=== PATIENT | male | born 1970 | race Caucasian/White ===

== ENCOUNTER 2024-11-19 12:46 | Outpatient (CLI) | payer BC, SELFPAY ==
[2024-11-19 13:23] LABS: Alanine Aminotransferase* 34 U/L (4-50); Aspartate Amino Transferase* 24 U/L (12-35); Bilirubin Total* 1.6 mg/dL (0.1-1.5)
== END 2024-11-19 12:47 | disposition home or self-care (01) ==
PROVIDERS: PCP Student in an Organized Health Care Education/Training Program; Visit Provider Podiatrist
DX: B25.1 Cytomegaloviral hepatitis (principal)
CPT/HCPCS: 36415; 82247; 84450; 84460

== ENCOUNTER 2025-01-05 08:22 | Outpatient (CLI) | payer BC, SELFPAY ==
[2025-01-05 09:16] LABS: Alanine Aminotransferase* 38 U/L (4-50); Aspartate Amino Transferase* 33 U/L (12-35)
== END 2025-01-05 08:23 | disposition home or self-care (01) ==
PROVIDERS: PCP Student in an Organized Health Care Education/Training Program; Visit Provider Podiatrist
DX: B35.1 Tinea unguium (principal)
CPT/HCPCS: 36415; 82247; 84450; 84460